=== PATIENT | male | born 1950 | race Caucasian/White ===

== ENCOUNTER 2023-08-31 11:30 | Emergency (ER) | payer OTHER, MEDICARE | END 2023-08-31 12:43 | disposition home or self-care (01) | LOC: VM.ED 11:30 | DX: S06.9X0A Unspecified intracranial injury without loss of consciousness, initial encounter (principal); I10 Essential (primary) hypertension; W01.0XXA Fall on same level from slipping, tripping and stumbling without subsequent striking against object, initial encounter | CPT/HCPCS: 70450; 99284 ==